=== PATIENT | male | born 1995 | race Two or more races ===

== ENCOUNTER 2019-03-26 03:59 | Emergency (ER) | payer OTHER ==
[~2019-03-26] VITALS: Ht 175.3 cm; Wt 80.3 kg
--- NOTE | 2019-03-26 06:00 | NUR ---
Patient does not wish to proceed with medical care recommended by Dr. GRANT. Patient given information related to possible complications, up to and including , which could occur as a result of leaving the hospital at this time. Patient verbalizes understanding of risks involved due to leaving against medical advice. Patient has signed AMA form.PATIENT ALERT ORIENTED X4. AMBULATORY W/STEADY GAIT. -ACUTE DISTRESS NOTED. -SOB NOTED. -BRUISING NOTED. -NEURO DEFICITS NOTED. PATIENT PROVIDED WITH SANDWICH ON WAY OUT.
[2019-03-26 06:01] VITALS: BP 127/88
== END 2019-03-26 06:36 | disposition left against medical advice (07) ==
LOC: ER 04:00
DX: S09.8XXA Other specified injuries of head, initial encounter (principal); F10.129 Alcohol abuse with intoxication, unspecified; W25.XXXA Contact with sharp glass, initial encounter; Y93.89 Activity, other specified; Y92.89 Other specified places as the place of occurrence of the external cause; Y99.8 Other external cause status; Y90.9 Presence of alcohol in blood, level not specified
CPT/HCPCS: 70450-TC